=== PATIENT | female | born 1945 | race Caucasian/White ===

== ENCOUNTER 2017-12-17 11:18 | Day surgery (SDC) ==
[2017-12-17] MEDS ORDERED: LIDOCAINE 1% 20 ML MDV ID STA (12:15)
[2017-12-17] MEDS ORDERED: LIDOCAINE HCL 2% LUER-JET ONE (13:10)
[2017-12-17] MEDS ORDERED: DIPRIVAN 20 ML VIAL IVP ONE (13:10)
[2017-12-17] MEDS ORDERED: VERSED ONE (13:10)
[2017-12-17 15:19] VITALS: BP 112/56; TEMP 97.7
--- NOTE | 2017-12-18 11:06 | OP ---
PROCEDURE: EGD (ESOPHAGOGASTRODUODENOSCOPY) WITH BIOPSY AND CLARK DILATATION. ENDOSCOPIST: Brandy MATHIAS M.D. INDICATION: ABNORMAL UPPER GI, DYSPHAGIA INSTRUMENT: [id number]. MEDICATION: PER ANESTHESIA. PROCEDURE: The patient was positioned for endoscopy. The oropharynx was sprayed with Cetacaine spray and the endoscope was advanced through the bite block into the esophagus and from there advanced to the duodenum. The duodenum was easily identified and traverse. Normal exam. The stomach was notable for multiple large fundic polyps. Biopsies were obtained. A hiatus hernia is noted. The Z-line was at 32cm. She has a very torturous esophagus with no obvious stricture. There does appear to be an extrinsic mass compression in the midesophagus which was nonpulsatile. The upper esophagus was normal. A 48 [address] Clark was passed with some difficulty given the tortuosity. No resistance to the passage beyond to the torturous esophagus. PLAN: 1. Get a CT scan of the chest with no IV contrast to evaluate for possible extrinsic mass. 2. She should also undergo speech pathology evaluation for dysphagia. CC: Dr. Radha LOVE
== END 2017-12-17 14:05 | disposition home or self-care (01) ==
LOC: SURG 11:18
PROVIDERS: ATTEND Internal Medicine Gastroenterology
DX: R13.10 Dysphagia, unspecified (principal); D13.1 Benign neoplasm of stomach; K22.8 Other specified diseases of esophagus; K44.9 Diaphragmatic hernia without obstruction or gangrene